=== PATIENT | male | born 1995 | race Caucasian/White ===

== ENCOUNTER 2020-04-25 11:50 | Emergency (ER) | payer OTHER ==
[~2020-04-25] VITALS: Ht 172.7 cm; Wt 68.0 kg
[2020-04-25 12:10] VITALS: BP 120/61
--- NOTE | 2020-04-25 12:49 | NUR ---
at bedside for rectal exam chaperoned by BALTAZAR [email or web address]
== END 2020-04-25 13:02 | disposition home or self-care (01) ==
LOC: ER 12:06
DX: K64.9 Unspecified hemorrhoids (principal)